=== PATIENT | female | born 1985 | race Caucasian/White ===

== ENCOUNTER 2018-02-16 16:45 | Emergency (ER) | payer OTHER ==
[~2018-02-16] VITALS: Ht 154.9 cm; Wt 118.0 kg
[2018-02-16 17:05] VITALS: TEMP 36.9; Ht 154.9 cm; Wt 118.0 kg
[2018-02-16] MEDS ORDERED: GELATIN SPONGE 12-7MM EXT STA (17:56)
--- NOTE | 2018-02-16 17:56 | DIAGNOSTIC IMAGING REPORT ---
LEFT FOURTH FINGER 3 VIEWS CLINICAL HISTORY: Left fourth finger pain COMPARISON: None. DISCUSSION: No acute fractures are visualized. There is a subungual exostosis. IMPRESSION: 1. No acute fractures 2. Subungual exostosis Electronically signed by: Rigoberto Hicks M.D. 02/16/2018 5:55 PM Dictated Date/Time: 02/16/2018 5:52 PM
[2018-02-16] MEDS ORDERED: DIPHTHERIA/TETANUS/PERTUSSIS 0.5 ML SYR/VIAL IM. ONE (18:00)
--- NOTE | 2018-02-16 18:23 | EMERGENCY ROOM VISIT NOTE ---
ED Visit Note First contact with patient: 17:53 Chief Complaint: "Left hand, cut tip of finger off". History of Present Illness: This patient is a 32-year-old female who presents to the Emergency Department via private vehicle for evaluation of their left fourth digit fingertip laceration. Patient sustained the laceration while operating a mandolin while at work. They report a moderate amount of bleeding initially. They deny any numbness or tingling into the distal extremity. They report no decreased range of motion of the affected digit. Patient rates her current discomfort as a 4/10. Patient's Tetanus status is not currently up-to- date. Medications: As noted below Allergies: None PMH: No pertinent SHx: Patient is employed and lives locally. ROS: All pertinent positive and negative review of systems are appropriately documented in the History of Present Illness. Physical Exam: VITAL SIGNS - Vital signs and nursing notes were reviewed. Stable. Hypertensive. GENERAL -32-year-old female appearing her stated age who is in no acute distress. Communicates well with provider and answers questions appropriately. SKIN - There is a 1 cm in diameter avulsion of the patient's distal left fourth digit on the finger pad. The edges do not gape apart with traction as this is an avulsion injury. No foreign bodies appreciated. Upon further examination there are no deep structures including deeper or large vessel, tendon, or bony structures appreciated. There is no active bleeding noted. MUSCULOSKELETAL - Laceration as described above. +5/5 strength appreciated of the affected digit. Full range of motion of the affected digit. VASCULAR - Capillary refill was brisk. IMAGING: LEFT FOURTH FINGER 3 VIEWS CLINICAL HISTORY: Left fourth finger pain COMPARISON: None. DISCUSSION: No acute fractures are visualized. There is a subungual exostosis. IMPRESSION: 1. No acute fractures 2. Subungual exostosis Electronically signed by: Rigoberto Hicks M.D. 02/16/2018 5:55 PM Dictated Date/Time: 02/16/2018 5:52 PM ED Course: Patient was seen and evaluated by myself. Risks and benefits of performing primary wound closure versus no repair were discussed with the patient who verbalizes understanding. Verbal consent was obtained prior to performing the procedure. This will require Gelfoam. I discussed benefit versus risk of anesthetization and decision was made to refrain from such. The wound was cleansed and prepped in the typical sterile fashion utilizing normal saline and Betadine. The wound was sterilely draped. Once proper anesthetization was established, the wound was further examined and demonstrated no deep involvement however an x-ray was also performed which reveals no acute fracture. She was informed upon the subungual exostoses. She is to follow with the family doctor and go over this finding of which is all likely benign . The wound was copiously irrigated with normal saline and Betadine. Gelfoam applied with excellent hemostasis. Patient tolerated the procedure well. Patient received their Adacel vaccination. Patient educated on worrisome symptoms for return visit to the Emergency Department. Patient discharged to home in good condition. In the evaluation and treatment of this patient, the following differential diagnoses were considered: Finger Fracture, Finger Dislocation, Finger Sprain, Finger Contusion, Jersey Finger, or Mallet Finger. Current/Historical Medications No Active Prescriptions or Reported Meds Allergies Coded Allergies: No Known Allergies (Unverified , 02/16/18) Vital Signs Date Time Temp Pulse Resp B/P (MAP) Pulse Ox O2 Delivery O2 Flow Rate FiO2 02/16/18 18:44 78 16 142/85 98 02/16/18 18:08 89 18 178/115 98 Room Air 02/16/18 17:05 36.9 90 18 154/82 96 Room Air Medications Administered Medications (Trade) Dose Ordered Sig/Yesenia Route Start Time Stop Time Status Last Admin Dose Admin Gelatin (Surgifoam Sponge 12-7MM (SMALL)) 1 ea NOW STAT EXT 02/16/18 17:56 02/16/18 17:58 DC 02/16/18 18:07 1 EA Diphtheria/ Pertussis/Tetanus Vacc (Adacel Inj) 0.5 ml ONCE ONCE IM. 02/16/18 18:00 02/16/18 18:01 DC 02/16/18 18:07 0.5 ML Departure Information Impression Primary Impression: Laceration Dispostion Home / Self-Care Condition GOOD Prescriptions No Active Prescriptions or Reported Meds Referrals No Doctor, Assigned (PCP) Patient Instructions [facility] Additional Instructions You have been treated in the Emergency Department today for your finger Avulsion. Leave the GELFOAM and dressing in place for the next 48 hours. Keep the dressing clean and dry until time for removal. To remove the GELFOAM dressing, remove the overlying tape and then soak the wound in warm water until the piece of GELFOAM can be easily removed. Proper wound care is essential for adequate wound healing and infection prevention. You can shower and clean the wound with soap and water. Do not scour over the wound, pat dry with a towel. You can use an antibiotic ointment with a dressing/bandage over the wound for the next 3-4 days. After this time you may leave the wound dry and open to the air. Look for signs of infection of the wound including: increased pain, swelling, foul discharge, streaking, or increased temperature. If any of these are noticed you should return to the Emergency Department for further assessment and treatment. As with any laceration you may have received nerve damage to the surrounding tissues. This damage could be permanent. For pain control, you can use the following [id number] medicines (if >12 yo): - Regular strength (325mg/tab) Tylenol (acetaminophen) 2 tabs every 4-6 hours as needed. Do not exceed 12 tablets in a 24 hour period. Avoid taking more than 3 grams (3000 mg) of Tylenol per day. This includes any other sources of acetaminophen you may take on a regular basis. - Regular strength (200 mg/tab) Advil (ibuprofen) 1-2 tabs every 4-6 hours as needed. Do not exceed a dose of 3200 mg per day. Return to the emergency department if your symptoms worsen despite treatment course outlined above.
[2018-02-16 18:44] VITALS: BP 142/85; PULSE 78; O2SAT 98
== END 2018-02-16 18:34 | disposition home or self-care (01) ==
LOC: C.EDB 16:48 → C.EDD 18:34
DX: S61.215A Laceration without foreign body of left ring finger without damage to nail, initial encounter (principal); W64.XXXA Exposure to other animate mechanical forces, initial encounter; Z23 Encounter for immunization